=== PATIENT | male | born 1950 ===

== ENCOUNTER 2017-09-20 13:18 | Emergency (ER) | payer OTHER ==
[~2017-09-20] VITALS: Ht 167.6 cm; Wt 54.4 kg
[2017-09-20] MEDS ORDERED: MILLIPRED DP5 M1 (13:37)
== END 2017-09-20 18:01 | disposition home or self-care (01) ==
LOC: ER 13:18
DX: K59.09 Other constipation (principal); N39.0 Urinary tract infection, site not specified; C79.51 Secondary malignant neoplasm of bone

== ENCOUNTER 2018-02-13 14:14 | Emergency (ER) | payer OTHER ==
[~2018-02-13] VITALS: Ht 170.2 cm; Wt 48.1 kg
[~2018-02-13 14:14] MED LIST: MILLIPRED DP5 M1
== END 2018-02-13 17:32 | disposition home or self-care (01) ==
LOC: ER 14:14
DX: T83.098A Other mechanical complication of other urinary catheter, initial encounter (principal)

== ENCOUNTER 2018-03-09 15:53 | Emergency (ER) | payer OTHER ==
[~2018-03-09] VITALS: Ht 170.2 cm; Wt 59.0 kg
== END 2018-03-10 00:33 | disposition home or self-care (01) ==
LOC: ER 15:53
DX: I95.9 Hypotension, unspecified (principal); E86.0 Dehydration; N39.0 Urinary tract infection, site not specified; C79.51 Secondary malignant neoplasm of bone

== ENCOUNTER 2018-03-17 11:28 | Inpatient (IN) | payer OTHER ==
[~2018-03-17] VITALS: Ht 157.5 cm; Wt 45.4 kg
[2018-03-17] MEDS ORDERED: PERCOCET 2.5-31 EACH (12:24)
== END 2018-03-25 17:05 | disposition home or self-care (01) | DRG 872 ==
LOC: ER 11:28 → MEDI 18:54 → ICU-2 18:54 → EDBD 18:54 → SEC-K 20:22 → MEDI 21:16
PROVIDERS: ADMIT Internal Medicine
PROC: BW21ZZZ Computerized Tomography (CT Scan) of Abdomen and Pelvis (ICD-10-PCS; principal; 2018-03-17)
PROC: 4A033R1 Measurement of Arterial Saturation, Peripheral, Percutaneous Approach (ICD-10-PCS; 2018-03-17)
PROC: 0T9B70Z Drainage of Bladder with Drainage Device, Via Natural or Artificial Opening (ICD-10-PCS; 2018-03-17)
PROC: 4A12X4Z Monitoring of Cardiac Electrical Activity, External Approach (ICD-10-PCS; 2018-03-17)
PROC: 8E0ZXY6 Isolation (ICD-10-PCS; 2018-03-20)
PROC: 30233N1 Transfusion of Nonautologous Red Blood Cells into Peripheral Vein, Percutaneous Approach (ICD-10-PCS; 2018-03-20)
DX: A41.9 Sepsis, unspecified organism (principal); C79.51 Secondary malignant neoplasm of bone; E24.0 Pituitary-dependent Cushing's disease; E86.0 Dehydration; C61 Malignant neoplasm of prostate; I10 Essential (primary) hypertension; R63.0 Anorexia; D63.0 Anemia in neoplastic disease; R00.0 Tachycardia, unspecified; B37.9 Candidiasis, unspecified; E87.8 Other disorders of electrolyte and fluid balance, not elsewhere classified; Z19.1 Hormone sensitive malignancy status

== ENCOUNTER 2018-03-28 13:04 | Emergency (ER) | payer OTHER ==
[~2018-03-28] VITALS: Ht 175.3 cm; Wt 45.4 kg
[~2018-03-28 13:04] MED LIST changes: +PERCOCET 2.5-31 EACH
== END 2018-03-28 22:43 | disposition home or self-care (01) ==
LOC: ER 13:04
DX: R33.8 Other retention of urine (principal); C61 Malignant neoplasm of prostate

== ENCOUNTER 2018-04-21 14:33 | Emergency (ER) | payer OTHER ==
[~2018-04-21] VITALS: Ht 160 cm; Wt 42.6 kg
[2018-04-22] MEDS ORDERED: APETIGEN-PLUS1 EACH PO (08:18)
== END 2018-04-22 09:45 | disposition home or self-care (01) ==
LOC: ER 14:33
DX: E86.0 Dehydration (principal); R63.0 Anorexia; E46 Unspecified protein-calorie malnutrition; C79.82 Secondary malignant neoplasm of genital organs; I47.1 Supraventricular tachycardia

== ENCOUNTER → 2018-04-23 | Emergency (ER) | payer OTHER ==
[~2018-04-23] VITALS: Ht 170.2 cm; Wt 44.0 kg
[~2018-04-23] MED LIST changes: +APETIGEN-PLUS1 EACH PO
== END | disposition home or self-care (01) ==
LOC: ER 09:40
DX: N39.0 Urinary tract infection, site not specified (principal); B95.61 Methicillin susceptible Staphylococcus aureus infection as the cause of diseases classified elsewhere

== ENCOUNTER → 2018-04-27 | Emergency (ER) | payer OTHER | END | disposition E | LOC: ER 22:34 ==